=== PATIENT | male | born 1960 | race Caucasian/White ===

== ENCOUNTER → 2018-08-05 08:35 | Outpatient (CLI) | payer BC, SELFPAY ==
--- NOTE | 2018-08-05 08:49 | RAD_ITS ---
STUDY: X-RAY CHEST REASON FOR EXAM: Male, 58 years old. Psoriatic arthropathy TECHNIQUE: PA and lateral views of the chest. COMPARISON: 2013 FINDINGS: The lungs are clear and expanded. There is no demonstrated pleural abnormality. Normal size heart. Normal mediastinum and jimenez. Normal visualized pulmonary arteries. Normal visualized aortic arch and descending thoracic aorta. Normal visualized thoracic spine. Normal visualized ribs, clavicles, and shoulders. There is no demonstrated abnormality of the visualized soft tissue structures of the upper abdomen. RAD/Chest PA and Lateral IMPRESSION: Normal x-ray examination of the chest. Electronically Signed: Magdaleno Davis MD at 17:30 EDT , Service support ,
--- NOTE | 2018-08-05 08:49 | RAD_ITS ---
STUDY: X-RAY - PELVIS REASON FOR EXAM: Male, 58 years old. Psoriatic arthropathy TECHNIQUE: One view of the pelvis was obtained. COMPARISON: None. FINDINGS: There is a non-specific bowel gas pattern. Normal visualized soft tissue structures. There is narrowing with cortical sclerosis and osteophyte formation of the sacroiliac joint consistent with degenerative osteoarthritic changes. Normal visualized bilateral superior and inferior pubic rami. Normal pubic symphysis. Normal ischial tuberosities. Normal visualized right femoral head. Normal right acetabulum. There is mild articular joint space narrowing of the right hip. Normal visualized left femoral head. Normal left acetabulum. There is mild articular joint space narrowing of the left hip. RAD/Pelvis 1 or 2 Views IMPRESSION: Degenerative arthrosis Electronically Signed: Magdaleno Davis MD at 17:23 EDT , Service support ,
[2018-08-05 10:24] LABS: Erythrocyte Sedimentation Rate 4 mm/hr (0-20)
[2018-08-05 10:26] LABS: Absolute Lymphocyte Count 2.02 X10^3/ul (0.83-4.51); Absolute Neutrophil Count 3.2 X10^3/uL (2.0-7.7); Basophil# 0.04 X10^3/uL; Basophil% 0.7 % (0-1); Eosinophil# 0.16 X10^3/uL; Eosinophils% 2.6 % (0-5); Hematocrit 45.1 % (40-54); Lymphocyte # 2.02 X10^3/ul (4.0); Lymphocyte % 32.8 % (19-41); Mean Corp Hgb Conc 33.3 g/gl (32-36); Mean Corpuscular Hgb 29.2 pg (27.0-32.0); Mean Corpuscular Volume 87.7 fL (80-94); Mean Platelet Vol. 11.1 fl (6.2-12.0); Monocyte# 0.71 X10^3/uL; Monocyte% 11.5 % (0-10); Neutrophil # 3.21 X10^3/uL (2.7-7.7); Neutrophil % 52.2 % (47-70); POSITIVE COUNT NO; POSITIVE DIFFERENTIAL NO; POSITIVE MORPHOLOGY NO; Platelet Count 189 K/mm3 (150-450); RBC Distribution Width CV 13.1 % (11.6-14.6); RBC Distribution Width SD 41.9 fl (35.1-43.9); Red Blood Count 5.14 M/mm3 (4.6-6.2); White Blood Count 6.2 K/mm3 (4.4-11.0)
[2018-08-05 10:45] LABS: ALB/GLOB Ratio 1.3 RATIO (0.9-2.4); AST(SGOT) 25 U/L (15-37); Alanine Aminotransfer ALT/SGPT 58 U/L (16-61); Albumin, Serum 4.2 g/dL (3.2-5.0); Alkaline Phosphatase 65 U/L (45-117); Anion Gap 8 (5-15); BUN 15 mg/dL (7-18); BUN/Creat Ratio 13.3 RATIO (10-20); CRP < 2.90 mg/L (0.0-3.0); Calcium,Total 8.9 mg/dL (8.5-10.1); Chloride 104 mmol/L (98-107); Creatinine, Serum 1.13 mg/dL (0.70-1.30); EST Glomerular Filtration Rate 71 mL/min (>60); Est Glom Filt Rate - Afr Amer 86 mL/min (>60); Globulin 3.2 g/dL (2.2-4.2); Glucose 110 mg/dL (74-106); Potassium 3.9 mmol/L (3.5-5.1); Protein, Total 7.4 g/dL (6.4-8.2); Rheumatoid Factor < 10.0 IU/mL (<15); Sodium Level 141 mmol/L (136-145)
[2018-08-11 11:51] LABS: CCP IgG Antibodies 8 units (0-19); HEPATITIS B SURFACE AG Negative (Negative); HLA B27 Positive (.); Hep B Surface Antibodies Non Reactive (.); Hep C Antibodies <0.1 s/co ratio (0.0-0.9)
== END ==
PROVIDERS: Referring Provider Internal Medicine Rheumatology; Visit Provider Internal Medicine Rheumatology
DX: L40.59 Other psoriatic arthropathy (principal); M15.9 Polyosteoarthritis, unspecified; L40.8 Other psoriasis; K21.9 Gastro-esophageal reflux disease without esophagitis; J30.9 Allergic rhinitis, unspecified
CPT/HCPCS: 36415; 71046; 72170; 80053; 81374; 85025; 85652; 86140; 86200; 86431; 86706; 86803; 87340

== ENCOUNTER 2023-02-14 12:51 | Emergency (ER) | payer OTHER, SELFPAY ==
[2023-02-14 12:52] VITALS: BP 140/106; PULSE 124; RESP 18; TEMP 36.1; O2SAT 92; BMI 37.3
--- NOTE | 2023-02-14 13:08 | EDS_ITS ---
HPI History of Present Illness Chief Complaint: Palpitations [facility] Home Medications albuterol 90 mcg/actuation aerosol inhaler 90 mcg inhalation DAILY 02/14/23 [History Last Taken Unknown] amlodipine 10 mg tablet 10 mg PO DAILY 02/14/23 [History Last Taken Unknown] aspirin 81 mg capsule 81 mg PO DAILY 02/14/23 [History Last Taken Unknown] carvedilol 12.5 mg tablet 12.5 mg PO BID 02/14/23 [History Last Taken Unknown] cholecalciferol (vitamin D3) 50 mcg (2,000 unit) capsule (Vitamin D3) 50 mcg PO DAILY 02/14/23 [History Last Taken Unknown] cyclobenzaprine 10 mg tablet 10 mg PO TID PRN Muscle relaxer 02/14/23 [History Last Taken Unknown] duloxetine 60 mg capsule,delayed release 60 mg PO DAILY 02/14/23 [History Last Taken Unknown] losartan 100 mg tablet 100 mg PO DAILY 02/14/23 [History Last Taken Unknown] omeprazole 40 mg capsule,delayed release 40 mg PO DAILY 02/14/23 [History Last Taken Unknown] prednisone 1 mg tablet 10 mg PO DAILY PRN arthritis pain 02/14/23 [History Last Taken Unknown] sulfasalazine 500 mg tablet 1 g PO DAILY 02/14/23 [History Last Taken Unknown] tramadol 50 mg tablet 50 mg PO Q6H PRN Pain 02/14/23 [History Last Taken Unknown] umeclidinium 62.5 mcg-vilanterol 25 mcg/actuation powdr for inhalation (Anoro Ellipta) 1 inh inhalation DAILY 02/14/23 [History Last Taken Unknown] Allergy/AdvReac Type Severity Reaction Status Date / Time diphenhydramine HCl Allergy Unknown Verified 03/05/14 10:05 [From Benadryl] Penicillins Allergy Unknown Verified 03/05/14 10:06 Social History Smoking Status: Former smoker EXAM Physical Exam Const Vital Signs: 02/14/23 12:52 02/14/23 13:18 02/14/23 13:18 Temperature 97 F L Temperature Source Temporal Pulse Rate 124 H 128 H Respiratory Rate 18 17 Respiratory Effort Normal Non-Labored Blood Pressure 140/106 H 154/116 H Blood Pressure Mean 117 128 Pulse Ox 92 95 Oxygen Delivery Method Room Air Room Air 02/14/23 13:32 02/14/23 15:05 02/14/23 17:13 Temperature Temperature Source Pulse Rate 110 H 89 Respiratory Rate 15 17 Respiratory Effort Blood Pressure 146/95 H 131/67 H Blood Pressure Mean 112 88 Pulse Ox 96 94 Oxygen Delivery Method Room Air Room Air Room Air [facility] [place] Narrative Medical decision making narrative: HISTORY OF PRESENT ILLNESS: 63-year-old male here for a chief complaint of palpitations, shortness of breath. The patient states he has had shortness of breath worse with last several weeks. He notes this is worse today. He denies palpitations to me on my evaluation. Today he notes his heart was racing and he was sent over by surgery center for evaluation. He denies any vomiting, volume loss, denies any bleeding diathesis. Denies any chest pain. Denies any syncope The patient denies recent surgery in the last 4 weeks or immobilization in the last 3 days, denies previous diagnosis of DVT or PE, hemoptysis, unilateral leg swelling or malignancy with treatment the last 6 months. No estrogen use noted. REVIEW OF SYSTEMS: Pertinent positives: Palpitations, shortness of breath Pertinent negatives: Lower extremity edema, chest pain, bleeding diathesis PHYSICAL EXAM: Nursing triage notes reviewed, Vital signs reviewed Constitutional: please see [facility] HENT: MMM Eyes: Pupils equal round and reactive to light, Extraocular muscles intact Neck: No stridor, no JVD, full neck ROM Lungs: Clear to auscultation, No wheezing or rales. No increased work of breathing, no conversational dyspnea, no accessory muscle use, no nasal flaring. No respiratory distress noted Heart: Fast irregular rate, no murmurs, No rubs and No gallops, 2+ distal pulses (radial, femoral, posterior tibial) in all extremities Abdomen: Soft, there is no tenderness, rigidity, rebound or guarding, no obvious peritoneal signs, no palpable pulsatile abdominal masses, no auscultated abdominal bruit : No CVAT Extremities: Trace bilateral lower extremity edema Neuro: No focal neurological deficits, cranial nerves II through XII intact, 5/5 strength in all extremities. Intact sensation to light touch in all extremities, 2+ reflexes bilateral patella tendons. Normal gait. No ataxia. Skin: No rash or lesions noted MEDICAL DECISION MAKING: Chief Complaint: Palpitations, shortness of breath External records reviewed: Last stress test in 2013 [facility] Narrative: Patient was initially tachycardic, hypertensive otherwise hemodynamically stable. Exam with irregularly irregular rhythm but no murmurs or gallops, lungs were clear he did have trace lower extremity edema. I considered the following differential diagnosis: ACS, arrhythmia, electrolyte abnormality, PE, pneumonia I considered PE as a potential etiology given tachycardia however patient low risk Wells score and as such I have a low suspicion for PE. I considered obtaining a CT of the chest without this was not needed. Patient's initial EKG showed atrial fibrillation likely with aberrancy and some runs of NSVT with frequent PVCs. QT interval prolonged. Gave magnesium empirically. Gave him IV metoprolol for rate control. I obtained a broad lab and imaging work-up to further elucidate the etiology of the patient's complaints. Labs with out leukocytosis to suggest systemic inflammation, no severe anemia, no significant electrolyte abnormalities, mild renal insufficiency. Troponin was negative which further eliminates myocardial ischemia as a potential diagnosis, BNP was elevated. Chest x-ray showed evidence of pulmonary vascular just consistent with heart failure. Patient ambulated here without significant hypoxia. He has no history of heart failure for which he takes a diuretic as well as carvedilol. 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 Factors affecting care: Hypertension, hyperlipidemia, Social determinants of health: Former smoker History obtained from others: None Shared decision making: I will have a discussion with the patient and or visitors regarding risk/benefits of further testing or admission. They will be made aware of of the risk/benefits inherent in this decision they will be given the opportunity to voice understanding. Consults: None Lab Data Attestation: I reviewed the patient's lab results. Lab results narrative: CBC with no leukocytosis, anemia, no thrombocytopenia BMP without significant electrolyte abnormalities, no anion gap to suggest endorgan hypoperfusion, mild renal insufficiency but no RICKI Troponin is negative, no evidence of myocardial ischemia BNP elevated consistent with volume overload Labs: Laboratory Results - last 24 hr 02/14/23 02/14/23 02/14/23 13:00 13:00 13:00 WBC 9.9 RBC 4.14 L Hgb 12.2 L Hct 37.3 L MCV 90.1 MCH 29.5 MCHC 32.7 RDW Std Deviation 40.0 RDW Coeff of Jose 12.3 Plt Count 344 MPV 10.0 Immature Gran % (Auto) 0.400 Neut % (Auto) 67.4 Lymph % (Auto) 20.0 Morton % (Auto) 8.9 Eos % (Auto) 2.7 Baso % (Auto) 0.6 Absolute Neuts (auto) 6.7 Absolute Lymphs (auto) 1.99 Nucleated RBC % 0 Sodium 138 Potassium 3.9 Chloride 104 Carbon Dioxide 25.0 Anion Gap 9 BUN 25 H Creatinine 1.38 H Estim Creat Clear Calc 61.92 Est GFR (MDRD) Af Amer 67 Est GFR (MDRD) Non-Af 55 L BUN/Creatinine Ratio 18.1 Glucose 106 Calcium 9.6 Magnesium 2.0 Troponin I High Sens 16 B-Natriuretic Peptide 141.9 H 02/14/23 15:10 WBC RBC Hgb Hct MCV MCH MCHC RDW Std Deviation RDW Coeff of Jose Plt Count MPV Immature Gran % (Auto) Neut % (Auto) Lymph % (Auto) Morton % (Auto) Eos % (Auto) Baso % (Auto) Absolute Neuts (auto) Absolute Lymphs (auto) Nucleated RBC % Sodium Potassium Chloride Carbon Dioxide Anion Gap BUN Creatinine Estim Creat Clear Calc Est GFR (MDRD) Af Amer Est GFR (MDRD) Non-Af BUN/Creatinine Ratio Glucose Calcium Magnesium Troponin I High Sens 17 B-Natriuretic Peptide Radiography Chest X-Ray - ED: Read by ED Physician Diagnostic Testing: Clinical Impression(s) from Imaging Studies Chest X-Ray 02/14/23 13:57 IMPRESSION: Vascular congestion and mild degree of CHF. Electronically Signed: Amadeo Johnson MD at 14:45 EDT , Chest x-ray consistent with mild CHF exacerbation, pulmonary vascular congestion, no obvious focal consolidation or pneumonia noted by my read. Discharge Plan Triage Chief Complaint: Palpitations ED Provider: Ciaran Zapien Dx/Rx/DC Orders Instructions: ED Palpitations Prescriptions: No Action cyclobenzaprine [Flexeril] 10 mg Tablet 10 mg PO TID PRN (Reason: Muscle relaxer) carvedilol 12.5 mg Tablet 12.5 mg PO BID Rx Instructions: must administer with a meal/food sulfasalazine 500 mg Tablet 1 g PO DAILY Rx Instructions: give with food (meal/snack) omeprazole 40 mg Capsule,Delayed Release(Dr/Ec) 40 mg PO DAILY tramadol 50 mg Tablet 50 mg PO Q6H PRN (Reason: Pain) prednisone 1 mg Tablet 10 mg PO DAILY PRN (Reason: arthritis pain) amlodipine 10 mg Tablet 10 mg PO DAILY albuterol 90 mcg/actuation Aerosol 90 mcg INHALATION DAILY losartan 100 mg Tablet 100 mg PO DAILY duloxetine 60 mg Capsule,Delayed Release(Dr/Ec) 60 mg PO DAILY cholecalciferol (vitamin D3) [Vitamin D3] 50 mcg (2,000 unit) Capsule 50 mcg PO DAILY Anoro Ellipta 62.5-25 mcg/actuation Blister With Device 1 inh INHALATION DAILY aspirin 81 mg Capsule 81 mg PO DAILY Primary Care Provider: Jose Ramachandran Referrals: Jose Ramachandran DO [Primary Care Provider] - Activity Restrictions/Additional Instructions: Thank you for trusting us with your care today! Please take Tylenol (2 pills, 650 mg), ibuprofen (2 pills, 400 mg) every 6 hours as needed for pain and fever control. Please take carvedilol as prescribed. Please take torsemide as prescribed. Please return to the emergency department if your symptoms change or worsen. Please follow with your primary care physician for further outpatient evaluation and management. Disposition Disposition: Home, Self Care
[2023-02-14 13:18] VITALS: BP 154/116; PULSE 128; RESP 17; O2SAT 95
[2023-02-14] MEDS: Metoprolol Tartrate 5 MG/5 ML Vial IV ×2 (13:39→16:13)
[2023-02-14] MEDS: Aspirin 81 MG TAB.CHEW 324 MG PO (13:39)
--- NOTE | 2023-02-14 13:45 | EKG12_ITS ---
Test Reason : REPEAT Blood Pressure : / mmHG Vent. Rate : 095 BPM Atrial Rate : 000 BPM P-R Int : 000 ms QRS Dur : 102 ms QT Int : 392 ms P-R-T Axes : 000 -58 064 degrees QTc Int : 492 ms Atrial fibrillation Left axis deviation Pulmonary disease pattern Inferior infarct , age undetermined Abnormal ECG Confirmed by KATHY ALVAREZ, TIMUR ([id number]), communications editor FERMÍN MOFFETT ([id number]) on 02/18/2023 11:42:20 AM Referred By: Confirmed By:TIMUR CHAVEZ MD
--- NOTE | 2023-02-14 13:57 | RAD_ITS ---
STUDY: X-RAY CHEST REASON FOR EXAM: Male, 63 years old. Tachycardia. Palpitations. TECHNIQUE: Single AP portable view of the chest. COMPARISON: Comparison is made with prior study August 05, 2018. FINDINGS: EKG electrodes are seen. There is evidence of vascular congestion and mild degree of CHF. There is no demonstrated pleural abnormality. Normal size heart. Normal mediastinum and jimenez. Normal visualized pulmonary arteries. Normal visualized aortic arch and descending thoracic aorta. Normal visualized thoracic spine. Normal visualized ribs, clavicles, and shoulders. There is no demonstrated abnormality of the visualized soft tissue structures of the upper abdomen. RAD/Chest 1 View (Portable) IMPRESSION: Vascular congestion and mild degree of CHF. Electronically Signed: Amadeo Johnson MD at 14:45 EDT ,
[2023-02-14 13:58] LABS: Absolute Lymphocyte Count 1.99 X10^3/uL (0.83-4.51); Absolute Neutrophil Count 6.7 X10^3/uL (2.0-7.7); Basophil# 0.06 X10^3/uL; Basophil% 0.6 % (0-1); Eosinophil# 0.27 X10^3/uL; Eosinophils% 2.7 % (0-5); Hematocrit 37.3 % (40-54); Hemoglobin 12.2 g/dL (13.0-16.5); Lymphocyte # 1.99 X10^3/ul (0.83-4.51); Mean Corp Hgb Conc 32.7 g/dL (32-36); Mean Corpuscular Hgb 29.5 pg (27.0-32.0); Mean Corpuscular Volume 90.1 fL (80-94); Monocyte# 0.88 X10^3/uL; Monocyte% 8.9 % (0-10); NRBC Flagged by Analyzer 0 % (0-5); Neutrophil % 67.4 % (47-70); Platelet Count 344 K/mm3 (150-450); RBC Distribution Width CV 12.3 % (11.6-14.6); Red Blood Count 4.14 M/mm3 (4.6-6.2); White Blood Count 9.9 K/mm3 (4.4-11.0)
[2023-02-14 14:04] LABS: Anion Gap 9 (5-15); BUN 25 mg/dL (7-18); BUN/Creat Ratio 18.1 RATIO (10-20); Calcium,Total 9.6 mg/dL (8.5-10.1); Chloride 104 mmol/L (98-107); Creatinine, Serum 1.38 mg/dL (0.70-1.30); EST Glomerular Filtration Rate 55 mL/min (>60); Est Glom Filt Rate - Afr Amer 67 mL/min (>60); Estimated Creatinine Clearance 61.92 ml/min; Glucose 106 mg/dL (74-106); Potassium 3.9 mmol/L (3.5-5.1); Sodium Level 138 mmol/L (136-145); Troponin-I HS (w/2H Reflex) 16 pg/mL (3.0-78.0)
[2023-02-14 14:19] LABS: BNP,B-Type NATRIURETIC PEPTIDE 141.9 pg/mL (0-100)
[2023-02-14 15:05] VITALS: BP 146/95; PULSE 110; RESP 15; O2SAT 96
[2023-02-14 15:40] LABS: Reflex Troponin-HS? (from REC) Y
[2023-02-14] MEDS: Carvedilol 12.5 MG Tablet PO (16:13)
[2023-02-14 16:50] LABS: Troponin-I HS 17 pg/mL (3.0-78.0)
[2023-02-14 17:13] VITALS: BP 131/67; PULSE 89; RESP 17; O2SAT 94
--- NOTE | 2023-02-14 18:14 | EKG12_ITS ---
Test Reason : AFIB Blood Pressure : / mmHG Vent. Rate : 129 BPM Atrial Rate : 153 BPM P-R Int : 000 ms QRS Dur : 112 ms QT Int : 338 ms P-R-T Axes : 000 -71 091 degrees QTc Int : 495 ms Accelerated Junctional rhythm with Premature supraventricular complexes and with frequent and consecu tive Premature ventricular complexes Left axis deviation Inferior infarct (cited on or before 23-JUN-2003) Anterior infarct , age undetermined Abnormal ECG Confirmed by KATHY ALVAREZ, TIMUR ([id number]), magazine editor FERMÍN MOFFETT ([id number]) on 02/19/2023 10:23:30 AM Referred By: VIKRAM Confirmed By:TIMUR CHAVEZ MD
== END 2023-02-14 18:59 | disposition home or self-care (01) ==
PROVIDERS: Emergency Provider Emergency Medicine; PCP Student in an Organized Health Care Education/Training Program; Visit Provider Emergency Medicine
DX: R00.2 Palpitations (principal); I11.0 Hypertensive heart disease with heart failure; Z87.891 Personal history of nicotine dependence; E78.5 Hyperlipidemia, unspecified; I10 Essential (primary) hypertension
CPT/HCPCS: 71045; 80048; 83735; 83880; 84484; 85025; 93005; 96361; 96374; 96376; 99282; A4216

== ENCOUNTER → 2023-04-19 | Outpatient (CLI) | payer OTHER, SELFPAY ==
--- NOTE | 2023-04-19 15:16 | STRESSREP ---
Stress Test Report Pharmacologic myocardial perfusion stress test. 63-year-old male with a history of coronary artery disease and cardiomyopathy Resting EKG demonstrates sinus bradycardia with a rate of 59 bpm incomplete left bundle branch block is noted. Resting blood pressure is 124/82 mmHg. 0.4 mg of regadenoson was infused per usual protocol followed by rapid intravenous saline flush injection. Continuous EKG monitoring was performed. The maximum heart rate was 73 bpm which was 46% of max impacted heart rate the maximum workload was 1 metabolic equivalent. At rest there were no ST or T wave changes noted to suggest ischemia and at peak infusion nonspecific ST changes were noted which did not meet the criteria for ischemia. No clinical angina is noted. The final blood pressure was 110/68 mmHg. Myocardial perfusion protocol. 14.9 mCi of technetium 99m sestamibi was injected at rest. 0.4 mg of regadenoson was infused per usual protocol. At peak infusion 44.8 mCi of technetium 99m sestamibi was injected stress images were obtained stress and rest images were reconstructed and compared in the short axis vertical long and horizontal long axis. Gated images were also obtained. Perfusion SPECT analysis: Review of the stress images demonstrate normal uptake of tracer noted in all areas of the myocardium with mild reduction of perfusion noted in the mid anterior wall. The resting images similar demonstrated normal uptake of tracer noted in all areas of the myocardium with minimal improvement in the mid anterior wall suggesting a small amount of mid anterior ischemia. Gated SPECT analysis: The gated ejection fraction is 28%. Conclusion: Abnormal pharmacologic myocardial perfusion stress test. Mild mid anterior ischemia present Reduced ejection fraction.
== END | disposition home or self-care (01) ==
LOC: CVS 06:03
PROVIDERS: PCP Student in an Organized Health Care Education/Training Program; Referring Provider Internal Medicine Cardiovascular Disease; Visit Provider Internal Medicine Cardiovascular Disease
DX: Z95.5 Presence of coronary angioplasty implant and graft (principal); I25.10 Atherosclerotic heart disease of native coronary artery without angina pectoris
CPT/HCPCS: 78452; 93017; A9500; A4216; J2785

== ENCOUNTER → 2023-04-22 | Outpatient (CLI) | payer OTHER, SELFPAY ==
[2023-04-22 17:14] LABS: Absolute Lymphocyte Count 2.28 X10^3/uL (0.83-4.51); Absolute Neutrophil Count 4.7 X10^3/uL (2.0-7.7); Basophil# 0.04 X10^3/uL; Basophil% 0.5 % (0-1); Eosinophils% 2.5 % (0-5); Hematocrit 40.6 % (40-54); Hemoglobin 12.4 g/dL (13.0-16.5); Lymphocyte # 2.28 X10^3/ul (0.83-4.51); Lymphocyte % 28.4 % (19-41); Mean Corp Hgb Conc 30.5 g/dL (32-36); Mean Corpuscular Hgb 28.7 pg (27.0-32.0); Mean Platelet Vol. 10.7 fl (6.2-12.0); Monocyte# 0.78 X10^3/uL; Monocyte% 9.7 % (0-10); NRBC Flagged by Analyzer 0 % (0-5); Neutrophil # 4.71 X10^3/uL (2.7-7.7); Neutrophil % 58.7 % (47-70); Platelet Count 219 K/mm3 (150-450); RBC Distribution Width CV 14.4 % (11.6-14.6); RBC Distribution Width SD 49.8 fl (35.1-43.9); Red Blood Count 4.32 M/mm3 (4.6-6.2)
[2023-04-22 17:22] LABS: Partial Thromboplast Time 28.5 Seconds (24.1-36.2); Prothrombin Time (Protime)PT. 12.7 SECONDS (11.7-14.9)
[2023-04-22 17:58] LABS: Anion Gap 7 (5-15); BUN 35 mg/dL (7-18); BUN/Creat Ratio 18.4 RATIO (10-20); Calcium,Total 9.3 mg/dL (8.5-10.1); Chloride 103 mmol/L (98-107); EST Glomerular Filtration Rate 38 mL/min (>60); Est Glom Filt Rate - Afr Amer 46 mL/min (>60); Glucose 102 mg/dL (74-106); Potassium 4.7 mmol/L (3.5-5.1); Sodium Level 138 mmol/L (136-145)
== END | disposition home or self-care (01) ==
LOC: LAB 16:04
PROVIDERS: PCP Student in an Organized Health Care Education/Training Program; Referring Provider Physician Assistant Medical; Visit Provider Physician Assistant Medical
DX: R94.39 Abnormal result of other cardiovascular function study (principal)
CPT/HCPCS: 36415; 80048; 85025; 85610; 85730

== ENCOUNTER 2023-04-26 07:20 | Day surgery (SDC) | payer OTHER, SELFPAY ==
[2023-04-22 11:12] VITALS: BMI 34.0
--- NOTE | 2023-04-26 09:29 | CL.D_ITS ---
Patient Name: ROSANA BOX Study Date: 04/26/2023 Performing: Tony Almodovar MD Ht: 73 inches 185.42 cm : 1960 Wt: 258.01 lbs 117.03 kg Age: 63 Gender: male BSA: 2.4 PROCEDURE(S) PERFORMED [id number])[facility] CLINICAL PROFILE AND INDICATIONS Indications: Suspected CAD Heart Failure: NYHA Class: 2, Newly Diagnosed: No, Heart Failure Type: Systolic Stress/Imaging Date: 04/11/23 CAD Presentations: Other: SOB CONCLUSIONS Previously placed stent noted patent in the LAD and moderate disease in the right coronary artery. Cardiomyopathy present. RECOMMENDATIONS Medical therapy DESCRIPTION OF PROCEDURE The patient arrived to the procedure lab. The risks and benefits of the procedure as well as a full description of our services here and current unavailability of surgical backup were fully explained to the patient and/or their significant other prior to the catheterization. The Timeout was completed, verifying the correct patient and procedure. The patient's procedural site was prepped and draped in the usual fashion. Local anesthetic was given subcutaneously to right radial region with Lidocaine 2%. Using a modified Seldinger technique, arterial access was obtained via the right radial artery, a 6Fr sheath was inserted. Left Coronary Artery selective angiography was performed in multiple views using a 5 Fr. 4.0 Flint catheter. Right Coronary Artery selective angiography was then performed in multiple views using a 5 Fr. 4.0 Flint catheter.The arterial sheath was pulled and a TR Band was applied for hemostasis w/ 10ml air CORONARY ANGIOGRAPHY DOMINANCE: Right Dominant LEFT HEART ASSESSMENT Left Ventricular Ejection Fraction: by Echo 25 % Global Hypokinesis - Severe Depressed Left Ventricular systolic function LEFT MAIN: Angiographically normal LEFT ANTERIOR DESCENDING ARTERY: Previously placed stent in the proximal left anterior descending artery is patent with no high-grade stenosis in the distal LAD has evidence of high-grade stenosis CIRCUMFLEX ARTERY: Mild luminal irregularities RIGHT CORONARY ARTERY: Mid right coronary artery with 50% stenosis and mild luminal irregularities present. COMPLICATIONS No Complications PROCEDURE MEDICATIONS Versed 1 mg IV Fentanyl 50 mcg IV Oxygen: 2 L/min via nasal cannula Heparin given IA 04/26/2023 08:58:09 Verapamil 2.5mg, Ntg 100mcgs, 3000 units of Heparin given IA 04/26/2023 08:58:09 SUMMARY OF HEMODYNAMIC DATA Time AIR REST Art 149/77 (100) 09:00:01 AO 136/75 (103) SA 09:05:23 ECG 09:23:15 09:23:19 Signed By Tony Almodovar MD On 04/26/2023 09:28:20 Tony Almodovar MD
== END 2023-04-26 10:45 | disposition home or self-care (01) ==
LOC: CLSP 07:21
PROVIDERS: PCP Student in an Organized Health Care Education/Training Program; Referring Provider Internal Medicine Cardiovascular Disease; Visit Provider Internal Medicine Cardiovascular Disease
DX: I48.19 Other persistent atrial fibrillation (principal); I50.41 Acute combined systolic (congestive) and diastolic (congestive) heart failure; I42.0 Dilated cardiomyopathy; I70.90 Unspecified atherosclerosis; Z95.5 Presence of coronary angioplasty implant and graft; I10 Essential (primary) hypertension; E78.00 Pure hypercholesterolemia, unspecified; Z82.49 Family history of ischemic heart disease and other diseases of the circulatory system
CPT/HCPCS: 93454; 99152; 99153; J7040; Q9967; C1769; C1894

== ENCOUNTER → 2023-05-01 | Outpatient (CLI) | payer OTHER, SELFPAY ==
[2023-05-01 17:10] LABS: Anion Gap 7 (5-15); BUN 32 mg/dL (7-18); BUN/Creat Ratio 13.7 RATIO (10-20); Calcium,Total 9.1 mg/dL (8.5-10.1); Chloride 102 mmol/L (98-107); Creatinine, Serum 2.34 mg/dL (0.70-1.30); EST Glomerular Filtration Rate 30 mL/min (>60); Est Glom Filt Rate - Afr Amer 36 mL/min (>60); Glucose 90 mg/dL (74-106); Potassium 4.8 mmol/L (3.5-5.1); Sodium Level 134 mmol/L (136-145)
== END | disposition home or self-care (01) ==
LOC: LAB 16:18
PROVIDERS: Physician Assistant Medical; PCP Student in an Organized Health Care Education/Training Program; Referring Provider Internal Medicine Cardiovascular Disease; Visit Provider Internal Medicine Cardiovascular Disease
DX: N18.30 Chronic kidney disease, stage 3 unspecified (principal)
CPT/HCPCS: 36415; 80048

== ENCOUNTER → 2023-06-01 | Outpatient (CLI) | payer OTHER, SELFPAY ==
[2023-06-01 11:05] LABS: Absolute Lymphocyte Count 1.97 X10^3/uL (0.83-4.51); Absolute Neutrophil Count 7.5 X10^3/uL (2.0-7.7); Basophil# 0.04 X10^3/uL; Basophil% 0.4 % (0-1); Eosinophil# 0.03 X10^3/uL; Eosinophils% 0.3 % (0-5); Hematocrit 41.1 % (40-54); Lymphocyte # 1.97 X10^3/ul (0.83-4.51); Lymphocyte % 19.1 % (19-41); Mean Corp Hgb Conc 31.6 g/dL (32-36); Mean Corpuscular Hgb 29.2 pg (27.0-32.0); Mean Corpuscular Volume 92.4 fL (80-94); Mean Platelet Vol. 10.5 fl (6.2-12.0); Monocyte# 0.73 X10^3/uL; Monocyte% 7.1 % (0-10); NRBC Flagged by Analyzer 0 % (0-5); Neutrophil # 7.48 X10^3/uL (2.7-7.7); Neutrophil % 72.7 % (47-70); Platelet Count 223 K/mm3 (150-450); RBC Distribution Width CV 15.3 % (11.6-14.6); Red Blood Count 4.45 M/mm3 (4.6-6.2); White Blood Count 10.3 K/mm3 (4.4-11.0)
[2023-06-01 11:38] LABS: AST(SGOT) 8 U/L (15-37); Alanine Aminotransfer ALT/SGPT 21 U/L (16-61); Albumin, Serum 4.3 g/dL (3.2-5.0); Alkaline Phosphatase 49 U/L (45-117); Anion Gap 7 (5-15); BUN 42 mg/dL (7-18); CRP < 2.90 mg/L (0.0-3.0); Calcium,Total 9.2 mg/dL (8.5-10.1); Chloride 107 mmol/L (98-107); Creatinine, Serum 1.75 mg/dL (0.70-1.30); EST Glomerular Filtration Rate 42 mL/min (>60); Est Glom Filt Rate - Afr Amer 51 mL/min (>60); Globulin 3.3 g/dL (2.2-4.2); Glucose 115 mg/dL (74-106); Potassium 4.5 mmol/L (3.5-5.1); Protein, Total 7.6 g/dL (6.4-8.2); Sodium Level 140 mmol/L (136-145)
== END | disposition home or self-care (01) ==
LOC: LAB 10:31
PROVIDERS: Physician Assistant Medical; PCP Student in an Organized Health Care Education/Training Program; Referring Provider Internal Medicine Rheumatology; Visit Provider Internal Medicine Rheumatology
DX: L40.59 Other psoriatic arthropathy (principal); I50.41 Acute combined systolic (congestive) and diastolic (congestive) heart failure
CPT/HCPCS: 36415; 80048; 80076; 85025; 86140

== ENCOUNTER → 2023-07-08 | Outpatient (CLI) | payer OTHER, SELFPAY ==
--- NOTE | 2023-07-08 13:45 | ECHOLC_ITS ---
Reason For Study: DILATED CMP Procedure This was a 2D Doppler, Color Flow transthoracic echocardiogram. The study was technically difficult. Due to body habitus. Contrast injection was performed. Exam performed in department. Left Ventricle Mildly dilated left ventricle. The estimated ejection fraction is 40 %. There is mild global hypokinesis of the left ventricle. Right Ventricle Normal RV size. Normal systolic function. Atria Normal left atrium. Normal right atrium. Mitral Valve Normal mitral valve. Tricuspid Valve Normal tricuspid valve. Aortic Valve Trisinus/trileaflet aortic valve. Pulmonic Valve The pulmonic valve is not well visualized. Great Vessels Normal aortic root. The pulmonary artery is normal size. Normal inferior vena cava. Pericardium/Pleural No pericardial effusion. Medication 22 gauge I.V. with prn adaptor inserted into right arm. Diluted definity 3.5ml given slow IV push to enhance endocardial definition. MMode/2D Measurements & Calculations LVIDd: 6.1 cm IVSd: 1.00 cm Ao root diam: 3.5 cm LVIDs: 4.5 cm LVPWd: 1.0 cm RVDd: 3.3 cm FS: 26.4 % LAV(MOD-bp): 85.8 ml LVAd ap4: 39.9 cm2 LVAd ap2: 35.8 cm2 LAV(MOD-bp) Indexed: 35.0 ml/m2 LVLd ap4: 9.3 cm LVLd ap2: 8.3 cm LAV(MOD-sp2): 84.9 ml EDV(MOD-sp4): 142.7 ml EDV(MOD-sp2): 127.1 ml LAV(MOD-sp4): 73.8 ml EDV(sp4-el): 145.2 ml EDV(sp2-el): 130.5 ml LVAs ap4: 28.3 cm2 LVAs ap2: 26.8 cm2 LVLs ap4: 7.9 cm LVLs ap2: 7.7 cm ESV(MOD-sp4): 84.7 ml ESV(MOD-sp2): 75.1 ml ESV(sp4-el): 86.7 ml ESV(sp2-el): 79.3 ml EF(MOD-sp4): 40.6 % EF(MOD-sp2): 40.9 % EF(sp4-el): 40.3 % SV(MOD-sp4): 58.0 ml SV(MOD-sp2): 52.0 ml SV(sp4-el): 58.5 ml LA A4 area: 21.8 cm2 LA dimension(2D): 4.6 cm RA A4 area: 19.9 cm2 ECHO/Echo Limited w/Contrast Interpretation Summary Mildly dilated left ventricle. The estimated ejection fraction is 40 %. There is mild global hypokinesis of the left ventricle. Contrast injection was performed. Ordering Physician: Mayelin Paul Referring Physician: Jose Ramachandran Performed By: Ashley Huang RDCS, RVT
== END | disposition home or self-care (01) ==
LOC: CVS 13:39
PROVIDERS: PCP Student in an Organized Health Care Education/Training Program; Referring Provider Physician Assistant Medical; Visit Provider Physician Assistant Medical
DX: I42.0 Dilated cardiomyopathy (principal)
CPT/HCPCS: 93308; Q9957; A4216; C8924